=== PATIENT | female | born 1930 | race Caucasian/White ===

== ENCOUNTER 2017-09-17 08:28 | Outpatient (CLI) | payer OTHER ==
[~2017-09-17 08:28] MED LIST: LASIX20 MG; NEURONTIN300 MG; THIAMINE HCL50 MG; ULTRAM50 MG PO; VASOTEC5 MG
== END 2017-09-17 11:02 | disposition home or self-care (01) ==
LOC: MRI 08:28
DX: M54.5 Low back pain (principal); M62.40 Contracture of muscle, unspecified site
CPT/HCPCS: 72148

== ENCOUNTER 2017-12-24 08:10 | Outpatient (CLI) | payer OTHER | END 2017-12-24 13:48 | disposition home or self-care (01) | LOC: LAB 08:10 | DX: E78.00 Pure hypercholesterolemia, unspecified (principal); R74.0 Nonspecific elevation of levels of transaminase and lactic acid dehydrogenase [LDH]; Z83.3 Family history of diabetes mellitus; I11.9 Hypertensive heart disease without heart failure ==

== ENCOUNTER → 2018-05-01 07:23 | Outpatient (CLI) | payer OTHER | END | disposition home or self-care (01) | LOC: LAB 07:23 | DX: E11.69 Type 2 diabetes mellitus with other specified complication (principal); E78.2 Mixed hyperlipidemia; E87.8 Other disorders of electrolyte and fluid balance, not elsewhere classified; R74.0 Nonspecific elevation of levels of transaminase and lactic acid dehydrogenase [LDH]; D50.8 Other iron deficiency anemias; Z83.49 Family history of other endocrine, nutritional and metabolic diseases; N39.0 Urinary tract infection, site not specified; R78.89 Finding of other specified substances, not normally found in blood; E55.9 Vitamin D deficiency, unspecified; Z12.11 Encounter for screening for malignant neoplasm of colon; J45.20 Mild intermittent asthma, uncomplicated; J11.1 Influenza due to unidentified influenza virus with other respiratory manifestations ==

== ENCOUNTER 2018-05-06 07:24 | Outpatient (CLI) | payer OTHER | END 2018-05-06 07:37 | disposition home or self-care (01) | LOC: NUCLEAR 07:24 | DX: K31.84 Gastroparesis (principal); I87.2 Venous insufficiency (chronic) (peripheral); M81.0 Age-related osteoporosis without current pathological fracture | CPT/HCPCS: 77080; 78264; 93970; A9541 ==

== ENCOUNTER 2018-05-08 07:57 | Outpatient (CLI) | payer OTHER | END 2018-05-08 09:23 | disposition home or self-care (01) | LOC: LAB 07:57 | DX: E11.69 Type 2 diabetes mellitus with other specified complication (principal); E78.2 Mixed hyperlipidemia; E87.8 Other disorders of electrolyte and fluid balance, not elsewhere classified; R74.0 Nonspecific elevation of levels of transaminase and lactic acid dehydrogenase [LDH]; D50.8 Other iron deficiency anemias; Z83.49 Family history of other endocrine, nutritional and metabolic diseases; N39.0 Urinary tract infection, site not specified; R78.9 Finding of unspecified substance, not normally found in blood; Z12.11 Encounter for screening for malignant neoplasm of colon; E55.9 Vitamin D deficiency, unspecified ==

== ENCOUNTER 2019-04-27 11:55 | Emergency (ER) | payer OTHER ==
[~2019-04-27] VITALS: Ht 165.1 cm; Wt 95.7 kg
[2019-04-27] MEDS ORDERED: NORVASC5 MG PO (12:17)
== END 2019-04-27 14:34 | disposition home or self-care (01) ==
LOC: ER 11:55
DX: G89.29 Other chronic pain (principal); M54.5 Low back pain; M51.37 Other intervertebral disc degeneration, lumbosacral region; A08.39 Other viral enteritis

== ENCOUNTER 2019-08-18 10:33 | Outpatient (CLI) | payer OTHER ==
[~2019-08-18 10:33] MED LIST changes: +NORVASC5 MG PO
== END 2019-08-18 10:41 | disposition home or self-care (01) ==
LOC: LAB 10:33
DX: R73.09 Other abnormal glucose (principal); E78.2 Mixed hyperlipidemia; E78.00 Pure hypercholesterolemia, unspecified; R74.0 Nonspecific elevation of levels of transaminase and lactic acid dehydrogenase [LDH]; E87.8 Other disorders of electrolyte and fluid balance, not elsewhere classified; D50.8 Other iron deficiency anemias; E55.9 Vitamin D deficiency, unspecified; R07.89 Other chest pain

== ENCOUNTER 2021-03-10 13:51 | Emergency (ER) | payer OTHER ==
[~2021-03-10] VITALS: Ht 165.1 cm; Wt 90.7 kg
== END 2021-03-10 17:48 | disposition home or self-care (01) ==
LOC: ER 13:51
DX: M19.012 Primary osteoarthritis, left shoulder (principal); M19.011 Primary osteoarthritis, right shoulder; M54.2 Cervicalgia

== ENCOUNTER 2021-05-24 09:19 | Emergency (ER) | payer OTHER ==
[~2021-05-24] VITALS: Ht 165.1 cm; Wt 93.4 kg
== END 2021-05-24 12:39 | disposition home or self-care (01) ==
LOC: ER 09:19
DX: M54.59 Other low back pain (principal)

== ENCOUNTER 2022-04-23 10:26 | Emergency (ER) | payer OTHER ==
[~2022-04-23] VITALS: Ht 165.1 cm; Wt 90.7 kg
[2022-04-23] MEDS ORDERED: GABAPENTIN800 M1 PO (10:38)
== END 2022-04-23 12:31 | disposition home or self-care (01) ==
LOC: ER 10:26
DX: M19.011 Primary osteoarthritis, right shoulder (principal); I10 Essential (primary) hypertension